=== PATIENT | female | born 1965 | race Caucasian/White ===

== ENCOUNTER 2022-07-24 10:07 | Day surgery (SDC) | payer BC, SELFPAY ==
[2022-07-23 13:59] VITALS: BMI 36.0
[2022-07-24 10:46] VITALS: BP 174/96; PULSE 66; RESP 18; TEMP 36.1; O2SAT 99
[2022-07-24] MEDS: CELEcoxib 200 mg Capsule 400 MG PO (10:58)
[2022-07-24] MEDS: gabapentin 300 mg Capsule PO (10:58)
[2022-07-24] MEDS: sodium chloride 0.9% 1,000 ML 30 ML IV (10:59)
--- NOTE | 2022-07-24 11:55 | W.PM.OPSUD ---
Surgery/Procedure H&P Update DATE OF PROCEDURE: July 24, 2022 DATE H&P PERFORMED: 07/07/22 CHANGES TO PREVIOUS DOCUMENTATION: No changes to previous documentation PREOP DIAGNOSIS: Right foot soft tissue mass PRIMARY INDICATION FOR PROCEDURE: Right foot soft tissue mass PLANNED PROCEDURE: Operation Date: 07/24/22 12:00 Proposed Procedures p Right foot soft tissue mass excision CPT 42653,M79.89(Right) - Caesar Vicente DPM
--- NOTE | 2022-07-24 12:22 | ANES.PREANE2 ---
Pre-Anesthetic Assessment Height/Weight: Height 1.63 m Weight 95.254 kg Temp Pulse Resp BP Pulse Ox O2 Del Method 97.0 F L 66 18 174/96 99 07/24/22 10:46 07/24/22 10:46 07/24/22 10:46 07/24/22 10:46 07/24/22 10:46 07/24/22 10:46 Preop Diagnosis: Right foot soft tissue mass Operation Date: 07/24/22 12:00 Proposed Procedures p Right foot soft tissue mass excision CPT 74084,M79.89(Right) - Caesar Vicente DPM Familial anesthetic complications: none Was Beta Shonda taken within 24 hours: N/A Was Clonidine taken within 24 hours: N/A Last intake: Intake Last Liquid Date 07/23/22 Last Liquid Time 23:00 Last Solid Date 07/23/22 Last Solid Time 20:00 Social No alcohol and No tobacco Exam alert, oriented x 3, clear to auscultation bilaterally and regular rate & rhythm Airway Submandibular: within normal limits Cervical ROM: within normal limits Mallampati: Class II Dentition: full Pulmonary Asthma CV/HEM Hypertension Metabolic Morbid Obesity and Thyroid Disease Anesthetic Plan ASA status: 2 Anesthesia: MAC Medications/Allergies Home Medications Medication Instructions Recorded Confirmed Last Taken Type albuterol sulfate 2.5 mg/0.5 mL 2.5 mg inhalation Q20M 07/07/22 07/23/22 Unknown History solution for nebulization albuterol sulfate 90 mcg/actuation 1 inh inhalation QID 07/07/22 07/23/22 Unknown History aerosol inhaler cholecalciferol (vitamin D3) 25 25 mcg PO DAILY 07/07/22 07/24/22 07/23/22 History mcg (1,000 unit) capsule 0600 guaifenesin 600 mg tablet, 600 mg PO BID 07/07/22 07/24/22 Unknown History extended release 12 hr (Mucinex) hydrochlorothiazide 12.5 mg capsule 12.5 mg PO DAILY 07/07/22 07/24/22 07/23/22 06:00 History hydroxychloroquine 100 mg tablet 100 mg PO BID 07/07/22 07/24/22 07/23/22 20:00 History levothyroxine 50 mcg tablet 150 mcg PO DAILY 07/07/22 07/24/22 07/23/22 06:00 History (Levoxyl) lisinopril 2.5 mg tablet 5 mg PO DAILY 07/07/22 07/24/22 07/23/22 20:00 History magnesium 250 mg tablet 250 mg PO DAILY 07/07/22 07/24/22 07/23/22 20:00 History multivitamin 1 tab PO DAILY 07/07/22 07/24/22 07/23/22 06:00 History ciclopirox 0.77 % topical cream 1 applic topical BID Tinea pedis 4 07/08/22 07/24/22 07/23/22 20:00 Rx weeks #90 grams hydrocodone 5 mg-acetaminophen 325 1 tab PO Q8H Post op pain #21 tabs 07/24/22 Unknown Rx mg tablet Allergies Allergy/AdvReac Type Severity Reaction Status Date / Time Penicillins Allergy Mild ADR-Nausea Verified 07/24/22 10:38 Sulfa (Sulfonamide Allergy Mild ADR-Anxiety Verified 07/24/22 10:38 Antibiotics) shellfish Allergy Mild ADR-Headach Uncoded 07/24/22 10:38 e Current Medications Generic Name Dose Route Start Last Admin Trade Name Freq PRN Reason Stop Dose Admin Sodium Chloride 1,000 mls @ 30 mls/hr 07/24/22 10:45 07/24/22 10:59 Sodium Chloride 0.9% IV 07/25/22 10:44 30 mls/hr .Q24H [place] Administration PFSH Anesthesia Social History Smoking and tobacco status: never smoked Data Anesthesia Cardiac Studies: No Data to Display
[2022-07-24] MEDS: clindamycin 600 MG/50 ML PREMIX 100 MG IV (12:30)
[2022-07-24] MEDS: lidocaine 1% INJ 20 mL SUBCUT (12:45)
[2022-07-24 13:14] VITALS: BP 102/66; PULSE 61; RESP 12; TEMP 36.2; O2SAT 98
[2022-07-24 13:19] VITALS: BP 112/78; PULSE 62; RESP 16; O2SAT 99
[2022-07-24 13:23] VITALS: BP 123/85; PULSE 59; RESP 16; TEMP 36.2; O2SAT 97
--- NOTE | 2022-07-24 13:27 | PM.OP ---
Operative Report Date of procedure: July 24, 2022 Pre-op diagnosis: Preop Diagnosis Right foot soft tissue mass Post-op diagnosis: Same Post-op findings: Lobulated, indurated yellowish?white soft tissue mass consistent with appearance of lipoma Procedure done: Soft tissue mass excision right foot CPT 79444 Specimens removed/disposition: Soft tissue mass right foot removed and sent to pathology Pathology: Soft tissue mass right foot Surgeon: Dr. Caesar Vicente, D.P.MMesfin Estimated blood loss: Less than 5 cc 11 minutes Complications: None Findings: Lobulated, indurated yellowish/white soft tissue mass Brief History: Patient has a history of right foot soft tissue mass at the arch which has been giving her pain and difficulty when walking as it digs into the arch of her shoes. She has been dealing with this for some time and has opted for surgical intervention. Procedure: Patient is a 57-year-old female that has a history of right foot soft tissue mass. The patient has had the aforementioned chief complaint for some time. Conservative treatment measures have been attempted and the patient has opted for surgical intervention at thistime. A lengthy discussion regarding the procedure, including risks and complications has been had with the patient and is noted in the recent clinic note. Written and verbal consent have been obtained. All patient questions have been answered to the patient?ssatisfaction. No written or verbal guarantees have been given or implied. The patient has been NPO since midnight. The history has been reviewed and the history and physical is current. The signed consent was confirmed and placed in the patient chart. Patient imaging has been reviewed and is consistent with thediagnosis. Under mild sedation, the patient was brought into the operating room and placed on the table in the supine position. IV antibiotics were given by the anesthesia team as preoperative surgical prophylaxis. IV sedation was then performed by the anesthesiateam. A pneumatic tourniquet was then placed about the right ankle. The operative site was then injected with 20 cc of a one-to-one mixture of 1% lidocaine plain and 0.25% Marcaine plain. The operative extremity was then prepped and draped in the usual fashion. The extremity was then elevated and exsanguinated before the tourniquet was inflated to 250 mmHg. After inflation, the followingprocedure was then performed. Attention was directed to the medial longitudinal arch of the right foot where a visible soft tissue mass measuring 1.5 cm circumferentially was visualized. A #15 blade was used to make a transverse incision over the aforementioned mass. Dissection was carried down to the level subcutaneous tissue. Care was taken to preserve the soft tissue mass. Using tenotomy scissors dissection was carried out circumferentially around the mass. Care was taken to cauterize any bleeders as necessary during dissection. After circumferential dissection using tenotomy scissors, it was grasped with brown pickups and dissected deeper. It was noted to have a small stalk extending into the deep plantar tissues. The stalk was transected and the soft tissue mass was removed from the operative field. The soft tissue mass measured 1.5 cm circumferentially. It appeared to be benign in nature. It was yellowish?white in coloration and lobulated and had the appearance of a lipoma. The remaining soft tissues were examined and no remaining soft tissue mass was visualized. The remaining tissues looked healthy and viable. The site was then irrigated with copious muscle sterile saline before attention was directed to closure. Subcutaneous closure was performed with 4-0 Vicryl followed by skin closure with 4-0 nylon in horizontal mattress and simple interrupted fashion. The tourniquet was let down good hyperemic response was noted all digits of the right foot. The incision site was dressed with Xeroform, 4 x 4 gauze, Kerlix and Barry bandage. A postop shoe was applied to the right foot. The patient tolerated the procedure and anesthesia well and without complication. The patient was transported from the operating room to the recovery room with vital signs stable and vascular status intact to all digits of the right foot foot. Thepatient was given both written and verbal instructions to remain weightbearing as tolerated to the operative extremity, to keep dressings/splint clean, dry and intact and to take pain medication as directed. The patient will follow-up in the outpatient setting at their scheduledappointment. The patient was discharged with my personal number and was instructed to call if any questions or issues should arise. They were discharged home once anesthesia criteria was met.
[2022-07-24 13:28] VITALS: BP 127/82; PULSE 57; RESP 17; TEMP 36.2; O2SAT 98
[2022-07-24 13:44] VITALS: BP 136/80; PULSE 60; RESP 17; TEMP 36.3; O2SAT 99
--- NOTE | 2022-07-24 15:23 | ANE.PACU2 ---
Inpatient post-anesthesia follow up: Airway intact: Yes Vital signs: Temperature 97.3 F Pulse Rate 60 Respiratory Rate 17 Blood Pressure 136/80 Pulse Oximetry 99 Oxygen Delivery Me thod Room Air Oxygen Flow Rate Fraction of Inspir ed Oxygen Hydration adequate: Yes Pain level: 1 Mental status: Baseline
== END 2022-07-24 13:53 | disposition home or self-care (01) ==
PROVIDERS: Visit Provider Podiatrist Foot & Ankle Surgery
PROC: (CPT 28039; principal; 2022-07-24 12:00)
DX: D21.21 Benign neoplasm of connective and other soft tissue of right lower limb, including hip (principal); I10 Essential (primary) hypertension; E66.01 Morbid (severe) obesity due to excess calories; Z68.36 Body mass index [BMI] 36.0-36.9, adult
CPT/HCPCS: 28039; 88307; J3490; J7030